=== PATIENT | male | born 1995 | race African-American/Black ===

== ENCOUNTER 2016-12-02 13:11 | Emergency (ER) | payer MEDICAID ==
[2016-12-02 13:25] VITALS: BP 120/104
--- OUTSIDE RECORDS SUMMARY | 2016-12-02 13:51 | XMS REPORT | Continuity of Care Document ---
:1995 Author Organization [facility] ([facility]) Address [address] [place] [address] Phone [phone] Care Team Providers Name Role Phone Unavailable Primary Care Provider Unavailable Source Comments This disclosure is being made pursuant to the Care Everywhere program, applicable federal and state laws, and may not contain all informaitonavailable regarding this patient.[facility] ([facility]) Active Allergies and Adverse Reactions Not on File Current Medications Not on file Active Problems Not on file Social History Tobacco Use Types Packs/Day Years Used Date Never Assessed Plan of Care Health Maintenance Due Date Last Done Comments Hepatitis B Vaccine (1 of 3 - Primary Series) 1993 HPV Vaccine (1 of 3 - Male 3 Dose Series) 2004 Tdap Vaccine 2004 Lipid Disorder Screening 2011 MMR Vaccine 2011 Td Vaccine 2011 Varicella Vaccine (1 of 2 - Adult - No Evidence of 2011 Immunity) Influenza Vaccine: Seasonal (#1) 03/25/2016 Results from Last 3 Months Not on file
--- NOTE | 2016-12-02 14:51 | ERNOTE ---
Date of Service: 12/02/16 Time Seen by Provider: 12/02/16 13:38 Stated Complaint: ALLERGIES/ANXIETY Presenting Symptoms:: cough, sore throat Source: patient, RN notes reviewed Exam Limitations: no limitations Immunizations: IMMUNIZATION HX Immunizations Up to Date Yes History of Influenza Vaccine Yes Hx Pneumococcal Vaccination No Allergies/Adverse Reactions: Allergies No Known Allergies Allergy (Unverified 12/02/16 13:25) Home Medications: HOME MEDICATIONS NK [No Home Medication] 12/02/16 [Last Taken Unknown] - History of Present Ilness Narrative: 21 y/o male ambulatory to the ED for URI symptom that began 2 days ago. He has similar symptoms every year at this time and believes he might have seasonal allergies. He denies rhinorrhea and watery eyes but does report sneezing. He states he is usually diagnosed with bronchitis and treated with cough syrup with codeine. He has not been taking anything for his symptoms. He also reports anxiety. He had been taking Xanax for this that he was "buying off the street." He reports that his mother found this out, and directed him to see a doctor. He tried to be seen in the clinic but was directed to come here. The anxiety symptoms have been going on for some time. He denies any suicidal or homicidal ideation. Prior Treatment: Denies: recently seen, treated by physician Review of Systems - Review of Systems Constitutional: Present: malaise. Absent: fever, chills EYE: Absent: eye discharge, tearing ENT: Present: nose congestion, sore throat. Absent: ear pain, nasal drainage Respiratory: Present: cough. Absent: shortness of breath, wheezing Cardiology: Absent: chest pain, palpitations Gastrointestinal/Abdominal: Absent: nausea, vomiting, abdominal pain Genitourinary: Present: no symptoms reported Musculoskeletal: Absent: muscle pain, neck pain Skin: Absent: rash, lesions Neurological: Absent: headache, dizziness/light-headedness Endocrine: Absent: excessive sweating, intolerance to heat, unexplained weight loss Hematologic/Lymphatic: Present: no symptoms reported Psych: Present: anxiety. Absent: depressed - Patient's Past Medical History Patient History - Medical: No pertinent hx Patient History - Cardiac/Respiratory: No pertinent hx Patient History - Cancer: No Hx of Cancer Patient History - Surgical Procedures: No surgical history Patient History - Other: None - Social History Living Situations: significant other Psych History: No pertinent hx Smoking Status: Current every day smoker Have you smoked in the past 12 months: Yes Do you dip or chew tobacco: No Alcohol Use: occasionally Drug Use: none - Immunizations Immunizations Up to Date: Yes Hx Pneumococcal Vaccination: No History of Influenza Vaccine: Yes Physical Exam - Physical Exam General Appearance: Present: wd/wn, alert, no apparent distress Eye Exam: Normal inspection: bilateral Ears, Nose, Throat: Present: nasal congestion, pharyngeal erythema. Absent: abnormal TM (R), abnormal TM (L), sinus pain/drainage, pharyngeal swelling, tonsillar exudate Neck: Present: normal inspection, nontender, supple, full range of motion Respiratory: Present: no respiratory distress, normal breath sounds, no accessory muscle use, lungs clear Cardiovascular/Chest: Present: regular rate, rhythm, no murmur, normal peripheral pulses Extremity Exam: Present: normal inspection, normal range of motion, no edema Neurological Exam: Present: alert, oriented, no motor/sensory deficits, other - flat affect. Absent: normal mood/affect Skin Exam: Present: normal color, warm/dry ED Progress - Vital Signs Patient's Vital Signs:: I have reviewed the patient's vital signs. Vital Signs: Vital Signs 12/02/16 13:20 Temperature 36.6 C Pulse Rate 97 Respiratory 17 Rate Blood Pressure 120/104 O2 Sat by Pulse 100 Oximetry - Progress/Reassessment Chief Complaint: Upper Respiratory Symptoms Progress:: Unchanged Departure - Departure Clinical Impression: Upper respiratory infection, viral Anxiety disorder Qualifiers: Anxiety disorder type: unspecified anxiety disorder Qualified Code(s): F41.9 - Anxiety disorder, unspecified Disposition: Home Follow Up Needed Condition: Stable Instructions: Upper Respiratory Infection, Adult, [id number], Panic Attacks, [id number] Additional Instructions: Symptomatic treatment of upper respiratory symptoms as discussed Contact psychiatry for appointment for management of anxiety Referrals: Maxine Jc MD [Staff Physician] -
== END 2016-12-02 14:06 | disposition home or self-care (01) ==
LOC: ER 13:11
DX: J06.9 Acute upper respiratory infection, unspecified (principal); B97.89 Other viral agents as the cause of diseases classified elsewhere; F41.9 Anxiety disorder, unspecified; F17.210 Nicotine dependence, cigarettes, uncomplicated